=== PATIENT | female | born 1980 | race Caucasian/White ===

== ENCOUNTER 2020-08-09 11:18 | Outpatient (CLI) | payer OTHER | END 2020-08-09 11:19 | disposition home or self-care (01) | LOC: DTY/OP 11:18 | PROVIDERS: ATTEND Surgery | DX: E11.9 Type 2 diabetes mellitus without complications (principal); E78.5 Hyperlipidemia, unspecified | CPT/HCPCS: 97802 ==

== ENCOUNTER 2020-08-14 08:29 | Outpatient (CLI) | payer OTHER | END 2020-08-14 08:30 | disposition home or self-care (01) | LOC: DTY/OP 08:29 | PROVIDERS: ATTEND Surgery | DX: E11.9 Type 2 diabetes mellitus without complications (principal); E78.5 Hyperlipidemia, unspecified | CPT/HCPCS: 97802 ==

== ENCOUNTER 2020-09-03 16:17 | Outpatient (CLI) | payer OTHER | END 2020-09-03 16:18 | disposition home or self-care (01) | LOC: DTY/OP 16:17 | PROVIDERS: ATTEND Surgery | DX: Z01.818 Encounter for other preprocedural examination (principal); E78.5 Hyperlipidemia, unspecified; E11.9 Type 2 diabetes mellitus without complications | CPT/HCPCS: 97802 ==

== ENCOUNTER 2021-02-27 08:50 | Outpatient (CLI) | payer OTHER ==
[2021-02-27 10:53] LABS: Albumin 4.5 g/dL (3.5-5.0)
[2021-02-27 14:24] LABS: Hemoglobin A1c 4.8 % (4.0-6.0)
[2021-02-27 17:08] LABS: SARS-CoV-2 PCR by NAA Not Detected (NotDetected)
== END 2021-02-27 08:51 | disposition home or self-care (01) ==
LOC: LABBT 08:50
PROVIDERS: ATTEND Surgery
DX: Z01.812 Encounter for preprocedural laboratory examination (principal); E78.5 Hyperlipidemia, unspecified; E11.9 Type 2 diabetes mellitus without complications; E66.01 Morbid (severe) obesity due to excess calories; Z68.37 Body mass index [BMI] 37.0-37.9, adult
CPT/HCPCS: 82040; 82565; 83036; 85014; U0003; U0005

== ENCOUNTER 2021-02-27 09:00 | Inpatient (IN) | payer OTHER ==
[2021-03-01 09:35] VITALS: BMI 37.9
[2021-03-04] MEDS ORDERED: cefOXitin Sodium/Dextrose 2 GM/50 ML BAG ONE (06:23)
[2021-03-04] MEDS ORDERED: Scopolamine 1.5 mg/72 hour Patch ONE (06:23)
[2021-03-04] MEDS ORDERED: Enoxaparin Sodium 40 MG/0.4 ML SYRINGE ONE (06:25)
[2021-03-04] MEDS ORDERED: Lidocaine 1% w/Epinephrine 1:100K 20 ML VIAL ONE (06:28)
[2021-03-04] MEDS ORDERED: Bupivacaine 0.25% HCL 30 ML VIAL ONE (06:28)
[2021-03-04] MEDS ORDERED: SUGAMMADEX SODIUM 200 MG/2 ML VIAL ONE (07:29)
[2021-03-04] MEDS ORDERED: Fentanyl 250 MCG/5 ML VIAL ONE (07:29)
[2021-03-04] MEDS ORDERED: Lidocaine 2% Jelly 5 ML TUBE ONE (07:29)
[2021-03-04] MEDS ORDERED: Ketorolac Tromethamine 30 MG/ML VIAL ONE (07:30)
[2021-03-04] MEDS ORDERED: Glycopyrrolate 0.2 MG/ML 5 ML SYRINGE ONE (07:30)
[2021-03-04] MEDS ORDERED: Ondansetron PF 4 MG/2 ML Vial ONE (07:30)
[2021-03-04] MEDS ORDERED: Rocuronium Bromide 10 MG/ML (10ML VIAL) ONE (07:30)
[2021-03-04] MEDS ORDERED: Lidocaine 1% PF 5 ML VIAL ONE (07:30)
[2021-03-04] MEDS ORDERED: Dexamethasone 20 MG/5 ML VIAL ONE (07:30)
[2021-03-04] MEDS ORDERED: Albuterol Sulfate HFA (OR ONLY) ONE (07:30)
[2021-03-04] MEDS ORDERED: PROPOFOL 200 MG/20 ML VIAL ONE (07:30)
[2021-03-04] MEDS ORDERED: Dextrose 50% Abboject 50 ML SYRINGE SLOW IVP PRN (07:43)
[2021-03-04] MEDS ORDERED: Promethazine HCl 25 MG/ML VIAL IM PRN ×2 (07:43→08:35)
[2021-03-04] MEDS ORDERED: diphenhydrAMINE 50 MG/ML VIAL IVP PRN (07:43)
[2021-03-04] MEDS ORDERED: Dextrose 5% in Water 1,000 ML IV PRN (07:43)
[2021-03-04] MEDS ORDERED: hydrALAZINE 20 MG/ML VIAL SLOW IVP PRN (07:43)
[2021-03-04] MEDS ORDERED: Hydrocodone-Acetamin 15 ML UDCUP PO PRN (07:43)
[2021-03-04] MEDS ORDERED: HumaLOG 300 UNITS/3 ML VIAL SC PRN (07:43)
[2021-03-04] MEDS ORDERED: Meperidine HCl/PF 25 MG/ML VIAL SLOW IVP PRN (08:35)
[2021-03-04] MEDS ORDERED: Promethazine HCl 25 MG/ML VIAL IVPB PRN (08:35)
[2021-03-04] MEDS ORDERED: Ondansetron HCl/PF 4 MG/2 ML Vial IVP PRN (08:35)
[2021-03-04] MEDS ORDERED: Dextroamphetamine/Amphetamine [Adderall Xr 30 Mg Capsule] PO SCH (09:00)
[2021-03-04] MEDS ORDERED: HYDROmorphone 0.5 MG/0.5 ML SYRINGE ONE (09:36)
[2021-03-04] MEDS ORDERED: Dextroamphetamine/Amphetamine [Adderall 20 Mg Tablet] PO SCH (10:00)
[2021-03-04] MEDS: D5 1/2 NS w/20 mEq KCL 1,000 ML IV SCH ×2 (10:02→17:27)
[2021-03-04] MEDS: Pantoprazole 40 MG VIAL IVP SCH (10:02)
[2021-03-04] MEDS: Ketorolac Tromethamine 30 MG/ML VIAL IVP SCH ×2 (11:21→17:27)
[2021-03-04] MEDS: Ondansetron PF 4 MG/2 ML Vial IVP PRN ×2 (11:56→21:13)
[2021-03-04] MEDS: Morphine 4 MG/ML VIAL SLOW IVP PRN ×3 (11:56→21:13)
[2021-03-05] MEDS: D5 1/2 NS w/20 mEq KCL 1,000 ML IV SCH ×2 (00:39→08:01)
[2021-03-05] MEDS: Ketorolac Tromethamine 30 MG/ML VIAL IVP SCH ×3 (00:39→11:57)
[2021-03-05 05:15] LABS: #Lymphocytes 2.2 thou/uL (1.20-3.40); #Monocytes 0.6 thou/uL (0.11-0.59); #Neutrophils 4.4 thou/uL (1.40-6.50); %Basophils 0.1 % (0.0-1.0); %Eosinophils 0.7 % (0.0-10.0); %Monocytes 7.9 % (0.0-10.0); %Neutrophils 61.3 % (42.0-75.0); Hemoglobin 12.5 g/dL (12.0-16.0); Mean Corpuscular HGB CONC 35.1 g/dL (32.0-36.0); Mean Corpuscular Volume 88.5 fL (78.0-98.0); Mean Platelet Volume 7.5 fL (7.4-10.4); Platelet Count 213 thou/uL (130-400); RBC Distribution Width 11.7 % (11.5-14.5); Red Blood Cell (RBC) Count 4.03 mill/uL (4.20-5.40); White Blood Cell (WBC) Count 7.2 thou/uL (4.8-10.8)
[2021-03-05 05:35] LABS: Anion Gap 10 mmol/L (10-20); BUN (Urea Nitrogen) 10 mg/dL (7.0-18.7); Calc. Creatinine Clearance 163 mL/min (70-130); Calcium 8.2 mg/dL (7.8-10.44); Carbon Dioxide 22 mmol/L (22-29); Chloride 107 mmol/L (98-107); Glucose 122 mg/dL (70-105); Potassium 3.6 mmol/L (3.5-5.1); Sodium 135 mmol/L (136-145)
[2021-03-05] MEDS ORDERED: Enoxaparin Sodium 40 MG/0.4 ML SYRINGE SC SCH (06:00)
[2021-03-05] MEDS: Pantoprazole 40 MG VIAL IVP SCH (09:32)
[2021-03-05 12:12] VITALS: BP 99/66; TEMP 98.2
[2021-03-06] MEDS ORDERED: Enoxaparin Sodium 40 MG/0.4 ML SYRINGE SC SCH (09:00)
== END 2021-03-05 13:45 | disposition home or self-care (01) | DRG 621 ==
LOC: SURG A 03-04 06:06
PROVIDERS: ADMIT Surgery; ATTEND Surgery
PROC: 0DB64Z3 Excision of Stomach, Percutaneous Endoscopic Approach, Vertical (ICD-10-PCS; principal; 2021-03-04)
PROC: 0BQT4ZZ Repair Diaphragm, Percutaneous Endoscopic Approach (ICD-10-PCS; 2021-03-04)
PROC: 8E0W4CZ Robotic Assisted Procedure of Trunk Region, Percutaneous Endoscopic Approach (ICD-10-PCS; 2021-03-04)
DX: E66.01 Morbid (severe) obesity due to excess calories (principal); K44.9 Diaphragmatic hernia without obstruction or gangrene; Z68.37 Body mass index [BMI] 37.0-37.9, adult; K21.9 Gastro-esophageal reflux disease without esophagitis; F32.A Depression, unspecified; F41.9 Anxiety disorder, unspecified; I10 Essential (primary) hypertension; Z87.891 Personal history of nicotine dependence; Z79.899 Other long term (current) drug therapy
CPT/HCPCS: 36415; 80048; 85025; 88307; C9113; J0694; J1100; J1170; J1650; J1885; J2270; J2405; J2704; J3010; J3480; S0020